=== PATIENT | male | born 1995 | race Caucasian/White ===

== ENCOUNTER 2024-10-12 09:00 | Outpatient (AMB) | payer BC, SELFPAY ==
--- NOTE | 2024-10-12 09:01 | MHC.PC.OV ---
Vital Signs 10/12/24 09:06 Height 5 ft 6 in Weight 166 lb BMI 26.8 BP 124/72 Blood Pressure Location Lt brachial Position Sitting Respiration 12 Pulse 84 Pulse Source Pulse Oximeter Temp 97.0 F Temp Source Oral Pulse Oximetry (%) 99 Oxygen Delivery Method Room Air Intake Visit Reasons: CPE Intake Note: New patient to establish care and cpe. Non Clinical Advisor Required: No Allergies No Known Allergies Allergy (Verified 10/12/24 09:26) Medication List - Last Reconciled 10/12/24 by RASHAUN Edmond No Known Home Meds Tobacco use date assessed: 10/12/24 Dental Screening Dental Screen Date: 10/12/24 Did you have a dental visit in the last 12 months?: No Did you have a dental problem in the last 6 months where you did not have access to dental care?: No Was dental information given to patient?: Patient has dentist HPI HPI Comments History of Present Illness Details 29 y/o M with asthma, ADHD, current vape nicotine and marijuana use, fhx Crohns social: getting next year;has a Cat, works as General [employer] Surgery: none Fhx: Mom crohns, Dad asthma; 2 brothers youngest bro w/ aspergers, brain surgery; 1 older sister alive. No children. Denies cancer in grandparents; PGM with COPD/. Health Maintenance Tdap admin today Specialists None History of Present Illness - The patient is a 29-year-old male presenting to establish care and for CPE - Previous PCP - peds. No records - Recent Streptococcal Pharyngitis; completed antibiotics, slight persistent scratchy throat, likely allergy-related. - Resolved childhood Asthma, no active treatment or symptoms. - ADHD, stopped Adderall at 17 due to side effects. - Family history of Crohn's, Asperger's, cancer-not specified, and COPD. - Recreational cannabis use reduced, stopped nicotine vaping recently. - Anxiety and depression screenings negative. - No Corrective lenses Past Surgical History - None Family History - Mother: Crohn?s disease - Father: History of adult-onset asthma - Youngest Brother: Asperger's syndrome and unspecified condition treated with chemotherapy. - Paternal Grandmother: due to Chronic Obstructive Pulmonary Disease (COPD). - No known family history of cancer besides COPD-related complications. Social History - Employment: manager mental health at an [employer] - Housing: Resides in [place] - Relationship Status: Engaged, with plans to next year - Substance Use: Ceased nicotine vaping a week ago, cannabis usage limited to weekends - Planning to cease cannabis entirely before starting a family Health Maintenance - Tetanus vaccine update recommended and consent given for administration today. - Screening labs discussed for future wellness visits; patient prefers completion before next visit. Review of Systems - General: Denies fever, denies significant weight changes. - Respiratory: Denies current asthma symptoms. - ENT: Reports mild scratchy throat. - Psychological: Denies current anxiety or depression. Physical Exam General: Well developed, well nourished, in no acute distress. Appears stated age. Head: Normocephalic, atraumatic. Eyes: Pupils are equal, round and reactive to light and accommodation. Conjunctivae are clear. Vision grossly normal. Patient wears corrective lenses. Ears: TMs clear AU, EACS WNL Nose: Patent, without discharge. No lesions noted. Neck: Supple, no adenopathy or thyromegaly. No pain on swallowing. Breast: Edu on SBE Lungs: Clear to auscultation bilaterally. No rales, rhonchi or wheeze noted. Good air flow in all youngblood. Heart: Regular rate and rhythm. No murmurs, click, rubs or gallops are noted. Abdomen: Bowel sounds present in all quadrants. The abdomen is soft, nontender, with no masses or organomegaly noted. No hernias are noted. : Deferred. Reviewed AMBREEN & recommendations Pulses: Peripheral pulses are equal and palpable bilaterally. Extremities: No clubbing, cyanosis nor edema is noted. History of ingrown toenails, currently resolved. Neurologic: Gait and station normal. Cranial Nerves 2-12 intact. Motor strength grossly symmetrical and intact. No sensory loss. Balance normal. Skin: No rashes, ulcers, or lesions noted. Turgor is good. Skin color is good. Hair and nails are without abnormalities. Psych: Normal eye contact, affect and mood appropriate, and normal interactions. Patient is alert and appropriate to context. Results Pending Discussion Notes During our discussion, I addressed the need for establishing primary care and updating vaccinations due to the patient's upcoming life changes, such as marriage. We went over his recent history of Streptococcal Pharyngitis and confirmed that he completed his antibiotic course with remaining mild throat discomfort likely connected to seasonal allergies. We discussed his ADHD history and the past use of Adderall, noting a preference not to revisit medication at this time. I encouraged further cannabis use reduction, especially considering future family planning. The importance of routine health maintenance, including updating immunizations like the tetanus shot today, and planning screenings for future visits was emphasized. The patient agreed to these steps and received guidance on accessing the patient portal and lab services. We also reinforced the importance of regular primary care visits moving forward. Patient was given time to ask questions. All questions were answered to their satisfaction. Assessment and Plan Tdap Labs at a later date; schedule telehealth to review Nicotine and cannabis cessation/reduction edu RTO 1 year CPE sooner PRN Consent Patient was informed and verbally consented to the use of an ambient scribe for clinic note documentation during this visit. An additional 15 minutes was spent addressing the problem(s) noted at todays visit. This includes time spent before the visit reviewing the chart, time spent during the visit, and time spent after the visit on documentation reviewing laboratory results, diagnostic imaging, medications, performing a medically necessary evaluation, counseling on diagnoses, care coordination, ordering appropriate tests, ordering appropriate medications, review of tests performed by other providers, reporting test results with the patient, communication with other healthcare providers. [facility] Medical History (Updated 10/12/24 @ 09:52 by Jagruti Zavala, [facility]) Asthma Surgical History (Updated 10/12/24 @ 09:10 by Clemencia Ann MA) No pertinent past surgical history Family History (Updated 10/12/24 @ 09:10 by Clemencia Ann MA) Father Asthma Social History (Updated 10/12/24 @ 09:09 by Clemencia Ann MA) Household Members: Significant Other Both parents involved: No Caregiver staying overnight: No Housing: House Are you a primary healthcare customer service to a significant other at home: No Do you presently have visiting nurse or other home services: No 75 years or older and lives alone: No Alcohol intake: current Alcohol intake frequency: a few times a week Patient Tobacco Use Status: Never used Tobacco e-Cigarette/Vaping Use: Never Used Second Hand Smoke Exposure: No Substance Use Type: Marijuana service: No Current occupational status: employed Current occupation: [employer] Cognitive needs: No Hearing needs: No Vision needs: No Questionnaire PHQ-9 Over the last 2 weeks, how often have you been bothered by any of the following problems? 1. Little interest or pleasure in doing things: not at all 2. Feeling down, depressed, or hopeless: not at all 3. Trouble falling or staying asleep, or sleeping too much: several days 4. Feeling tired or having little energy: several days 5. Poor appetite or overeating: several days 6. Feeling bad about yourself - or that you are a failure or have let yourself or your family down: not at all 7. Trouble concentrating on things, such as reading the newspaper or watching television: several days 8. Moving or speaking so slowly that other people could have noticed. Or the opposite - being so fidgety or restless that you have been moving around a lot more than usual: not at all 9. Thoughts that you would be better off or of hurting yourself in some way: not at all Total score: 4 Depression Screening Interpretation: Negative Depression Screening Done: Yes 42281 - PHQ-9 Billing: Yes Source: Developed by Drs. Rob Doe, Kelley Jiménez, Filiberto Zimmer and colleagues, with an educational gladys from [employer]. Thrive Questionnaire Date Thrive assessed: 10/12/24 I am a: Patient What is your living situation today?: I have a steady place to live Within the past 12 months, did the food you bought not last and you didn't have the money to get more?: Never true Within the past 12 months, did you worry whether your food would run out before you got money to buy more?: Never true Do you have trouble paying for medicines?: No Do you have trouble getting transportation to medical appointments?: No Do you have trouble paying your heating and electricity bill?: No Do you have trouble taking care of your child, family member or friend?: No Do you have trouble with day-to-day activities such as bathing, preparing meals, shopping, managing finances, etc.?: No Are you currently unemployed and looking for a job?: No Are you interested in more education?: No Please select the resources that you would like help with: None Currently or been in a relationship where the following occur: No concerns reported THRIVE Score: 0 AUDIT C Alcohol Use Questionnaire (AUDIT-C) 1. How often do you have a drink containing alcohol?: 2-4 times a month 2. How many drinks containing alcohol do you have on a typical day when you are drinking?: 3 or 4 3. How often do you have six or more drinks on one occasion?: Less than monthly Total Score: 4 Score Reviewed/Action Taken: Yes JANAE-7 AMB Questionnaire JANAE-7 Date JANAE - 7 assessed: 10/12/24 Feeling nervous, anxious, or on edge: 0 = Not at all Not being able to stop or control worryin = Not at all Worrying too much about different things: 1 = Several days Trouble relaxin = Not at all Being so restless that it is hard to sit still: 1 = Several days Becoming easily annoyed or irritable: 0 = Not at all Feeling afraid as if something awful might happen: 0 = Not at all Total JANAE-7 score (0-4 normal; 5-9 mild; 10-14 moderate; 15-21 severe): 2 Source: Developed by Drs. Rob Doe, Kelley Jiménez, Filiberto Zimmer and colleagues, with an educational gladys from [employer]. JANAE-7 Assessment Billing JANAE-7 Assessment Tool: JANAE-7 Assessment 18378 ACT Questionnaire In the past 4 weeks, how much of the time did your asthma keep you from getting as much done at work, school or at home?: None of the time During the past 4 weeks, how often have you had shortness of breath?: Not at all During the past 4 weeks, how often did your asthma symptoms wake you up at night or earlier than usual in the morning?: Not at all During the past 4 weeks, how often have you had to use your rescue inhaler or nebulizer medication?: Not at all How would you rate your asthma control during the past 4 weeks?: Completely controlled ACT Interpretation: Negative Score: 25 Physical exam (Primary Care) Vital Signs: Last Vital Signs Temp 97.0 F 10/12/24 09:06 Pulse 84 10/12/24 09:06 Resp 12 10/12/24 09:06 BP 124/72 10/12/24 09:06 Pulse Ox 99 10/12/24 09:06 Oxygen Delivery Method Room Air 10/12/24 09:06 BMI result Body Mass Index 26.8 Tobacco/Smoking Status: Tobacco use Status Tobacco use date assessed 10/12/24 10/12/24 09:10 Patient Tobacco Use Status Never used Tobacco 10/12/24 09:10 e-Cigarette/Vaping Use Never Used 10/12/24 09:10 PHQ-9: PHQ-9 Score PHQ-9: Total score 4 10/12/24 09:26 Depression Screening Interpretation: Negative Thrive Assessment: Date of Thrive Assessment Date Thrive assessed 10/12/24 10/12/24 09:10 Currently or been in a relationship where the following occur: No concerns reported Immunizations Boostrix Tdap 2.5 Lf unit-8 mcg-5 Lf/0.5 mL intramuscular syringe Performing Provider: FIFI Edmond Performing Location: [facility] [place] Family Medicine Administered by: Clemencia Ann MA on 10/12/24 09:48 Dose Route Admin Location Dispensed Lot Number Expiration Date [facility] Screen Measurer [employer] Trimmer 0.5 mL IM Right Deltoid 0.5 mL [id number] 12/07/26 46997-181-49 Marginize Total Dispensed Waste 0.5 mL 0 % VIS Given Date VIS Provided VIS Publication Date 10/12/24 Single Vaccine 20 Eligibility Eligibility Date Funding Source Not [facility] Eligible 10/12/24 Private Coding Level of Care Code New Pt Level 2 (95682) New Pt Prev Care 18-39yr(24811 Diagnoses Encounter to establish care with new provider Z76.89 Need for Tdap vaccination Z23 Hx of attention deficit hyperactivity disorder Z86.59 Laboratory exam ordered as part of routine general medical examination Z00.00 Current nicotine vapor product user on some days Z72.0 Marijuana use F12.90 Family history of Crohn's disease Z83.79 History of asthma Z87.09 Encounter for general adult medical examination without abnormal findings Z00.00 Additional Codes JANAE-7 Assessment Billing - JANAE-7 Assessment Tool: JANAE-7 Assessment 42812 ([id number]) PHQ-9 - 66075 - PHQ-9 Billing: Yes ([id number]) Asthma Control Questionnaire - ACT Interpretation: Negative ([id number]) Assessment & Plan Assessment & Plan (1) Encounter to establish care with new provider: Code(s): Z76.89 - Persons encountering health services in other specified circumstances (2) Need for Tdap vaccination: Code(s): Z23 - Encounter for immunization Category: Medical (3) Hx of attention deficit hyperactivity disorder: Comment: was on adderral age [age] stopped while in highschool, managing @ this time. Code(s): Z86.59 - Personal history of other mental and behavioral disorders Category: Medical (4) Laboratory exam ordered as part of routine general medical examination: Code(s): Z00.00 - Encounter for general adult medical examination without abnormal findings Category: Medical (5) Current nicotine vapor product user on some days: Comment: Smoking Cessation How to Quit There are a lot of ways to quit smoking and many resources to help you. Family members, friends, and co-workers may be supportive or encouraging, but to be successful the desire and commitment to quit must be your own. Most people who have been able to successfully quit smoking made at least one unsuccessful attempt in the past. Try not to view past attempts to quit as failures, but rather as learning experiences. Stopping smoking or using smokeless tobacco is difficult, but anyone can do it. Know the symptoms to expect when you stop. Common symptoms include: ? An intense craving for nicotine ? Anxiety, tension, restlessness, frustration, or impatience ? Difficulty concentrating ? Drowsiness or trouble sleeping, as well as bad dreams and nightmares ? Drowsiness and trouble sleeping ? Headaches ? Increased appetite and weight gain ? Irritability or depression How severe your symptoms are depends on how long you smoked and how many cigarettes you smoked each day. Feel ready to quit? ? First and foremost, set a quit date and quit completely on that day. Before your quit date, you may begin reducing your cigarette use. But remember, there is no safe level of cigarette smoking. ? List the reasons why you want to quit. Include both short- and long-term benefits. ? Identify the times you are most likely to smoke. For example, do you tend to smoke when feeling stressed or down? When out at night with friends? While drinking coffee or alcohol? When bored? While driving? Right after a meal or sex? During a work break? While watching TV or playing cards? When you are with other smokers? ? Let all of your friends, family, and co-workers know of your plan to stop smoking and your quit date. Just being aware that they know what you're going through can be helpful, especially when you are grumpy. ? Get rid of all your cigarettes just before the quit date, and clean out anything that smells like smoke, such as clothes and furniture. Make a plan about what you will do instead of smoking at those times when you are most likely to smoke. ? Be as specific as possible. For example, drink tea instead of coffee -- tea may not trigger the desire for a cigarette. Or, take a walk when you feel stressed. ? Remove ashtrays and cigarettes from the car. Place pretzels or hard candies there instead. Pretend-smoke with a straw. ? Find activities that focus your hands and mind but are not taxing or fattening. Computer games, solitaire, knitting, sewing, and crossword puzzles may help. ? If you normally smoke after eating, find other ways to end a meal. Play a tape or CD, eat a piece of fruit, get up and make a phone call, or take a walk (a good distraction that also fonseca calories). Make other changes in your lifestyle. ? Change your daily schedule and habits. Eat at different times or eat several small meals instead of three large ones. Sit in a different chair or even a different room. ? Satisfy your oral habits by eating celery or other low-calorie snack, chewing sugarless gum, or sucking on a cinnamon stick. ? Go to public places and restaurants where smoking is prohibited or restricted. ? Eat regular meals and don't eat too much candy or sweet things. ? Get more exercise. Take walks or ride a bike. Exercise helps relieve the urge to smoke. Set short-term quitting goals and reward yourself when you meet them. ? Every day, put the money you normally spend on cigarettes in a jar. Then buy something pleasurable after a period of time. ? Try not to think about all the days ahead you will need to avoid smoking. Take it one day at a time. ? Even one puff or one cigarette will make your desire for more cigarettes even stronger. However, it is normal to make mistakes. So even if you have one cigarette, you don't need to take the next one. Other tips to help you quit smoking and stick to it: ? Enroll in a smoking cessation program (hospitals, health departments, community centers, and work sites often offer programs). Learn about self-hypnosis or other techniques. ? Ask your health care provider about prescription medications that are safe and appropriate for you. ? Find out about nicotine patches, gum, and sprays. The [employer]'s web site -- www.cancer.org -- is an excellent resource for smokers who are trying to quit, and the [employer] Sm[employer] can help some smokers kick the habit. Above all, don't get discouraged if you aren't able to quit smoking the first time. Nicotine addiction is a hard habit to break. Try something different next time. Develop new strategies, and try again. Many people take several attempts to finally kick the habit. Code(s): Z72.0 - Tobacco use Category: Social Hx (6) Marijuana use: Comment: Marijuana: Natural = Safe, Right? Marijuana is readily available to use in many states in the [place]. Understanding the possible risks of use is important to ensure the safety. No matter how you use marijuana (smoke it, eat it, or apply to your skin), it may cause problems with both short term and jail use How marijuana affects your BRAIN: Potential effects from Short Term Use Poor focus, memory and reaction time Difficulty with problem solving Hallucinations, paranoia, anxiety Potential effects from Jail Use Memory problems and trouble learning new things Depression, hallucinations, paranoia, anxiety, worsening PTSD symptoms addiction Brain. It is not safe to drive while on marijuana. It makes it hard to doctor of naturopathic medicine distance, concentrate, react quickly to signals and sounds, be alert and coordinated. If alcohol is combined, this risk is even higher! In regular users, some of the effects from service superintendent use may last for days or even weeks after stopping marijuana. How inhaling marijuana affects your LUNGS: Inhaling harmful chemicals Gases Small particles Carcinogens (toxins linked to cancer) Breathing problems similar to tobacco smokers Daily cough with mucus Difficulty breathing Lung infections (bronchitis, pneumonia) Lungs How marijuana affects your HEART: Increases risk of heart attack Within the first hour of smoking Increases heart rate 20?100% increase after smoking Increase lasts up to three hours Changes in heart rhythm Feels like your heart skips a beat, or is fluttering, or beating too fast or too slow Heart Is it SAFE to use marijuana with other medications? A combination that can be concerning is the use of opioids and/or benzodiazepines with marijuana. Opioids + Benzodiazepines + Marijuana: Drowsiness: All three can cause drowsiness. Reaction time: All three can reduce reaction time. Do not drive or operate machinery. Overdose: Opioids and Benzodiazepines can cause reduced breathing and in some cases, breathing can stop and a person can . Marijuana containing higher levels of THC may cause difficulty with thinking and memory and this could result in medication errors where extra doses of opioids, benzodiazepines, or other medications may be taken. What is the harm? Example of Opioids Morphine (MS Contin?, Yeimi?) Oxycodone (Percocet?, OxyContin?) Hydrocodone (Vicodin?, [place]?) Fentanyl (Duragesic?) Methadone Heroin Example of Benzodiazepines Lorazepam (Ativan?) Diazepam (Valium?) Alprazolam (Xanax?) Clonazepam (Klonopin?) If you have specific questions about the safety of using marijuana with other medications, please contact your provider or pharmacist. Some marijuana users can become addicted! You can have problems with marijuana withdrawal. You may have withdrawal symptoms the day after you stop using. These can get worse 2 to 3 days after using and can take 1 to 2 weeks or longer to go away. Recovery and Treatment Contact your provider or health care team if you are having concerns about your marijuana use or to learn more about available treatment services. The marijuana plant is not an FDA-approved medicine: The U.S. Food and Drug Administration (FDA) has not approved the marijuana plant as a medication due to lack of studies on the risks and benefits. Marijuana contains over 100 chemical substances known as cannabinoids. Some of these, like tetrahydrocannabinol (THC), have mind altering effects and can be intoxicating. Cannabidiol (CBD), another cannabinoid, does not cause the same ?high? users of THC experience. THC has been studied for the treatment of several conditions, including nausea and increasing appetite. CBD is similarly being studied for a number of conditions, including childhood epilepsy and inflammation. What is different between the marijuana product I get from the marijuana shop and a prescription from the pharmacy? The right dose of any medicine is important. A specific dose of THC is approved to treat nausea, but high doses of THC may cause vomiting. The ingredients in a medicine must be measured and stay the same from one dose to the next. The marijuana plant contains unknown ingredients that change from plant to plant. This makes it hard to control the ?dose? of marijuana needed to treat a condition and use it in the same way we use other medicines. Future studies are ongoing to establish the role of the marijuana plant and the cannabinoids found in the plant for treatment of medical conditions. If you have questions about using a marijuana product for a medical condition, please discuss this with your medical provider to determine the most appropriate treatment for you. [facility] Providers are not able to prescribe marijuana products. Information in this document was compiled by the [facility] of Excellence in Substance Abuse treatment and Education ([facility] [place] It contains information from factsheets by the National [place] on Drug Abuse (www.drugabuse.gov) and presentation by Farhat Noriega, Farhat Greene, & Estrella Oneil (2010) entitled ?What providers need to know about cannabis use in Veterans with mental health conditions: Research, policy, practice,? and an additional reference: Sherry Aguilar M.D., Eldon Schwab, Ph.D., Anthony Trinidad M.D., and Monica Lou, Ph.D: Adverse Effects of Marijuana. N Engl J Med 2014; 370:7359-1331, July 22, 2012 DOI: [id number]. [place] [facility] Academic Detailing Service Code(s): F12.90 - Cannabis use, unspecified, uncomplicated Category: Social Hx (7) Family history of Crohn's disease: Comment: mom Code(s): Z83.79 - Family history of other diseases of the digestive system Category: Medical (8) History of asthma: Code(s): Z87.09 - Personal history of other diseases of the respiratory system Category: Medical (9) Encounter for general adult medical examination without abnormal findings: Onset Date: ~10/12/24 Code(s): Z00.00 - Encounter for general adult medical examination without abnormal findings Category: Medical Plan . Orders: Orders Microalbumin, Random (w Creat) Today Z00.00 - Encounter for general adult medical examination without abnormal findings TSH reflex Free T4 Today Z00.00 - Encounter for general adult medical examination without abnormal findings Vitamin B12 and Folate Today Z00.00 - Encounter for general adult medical examination without abnormal findings Vitamin D 25-OH Total Today Z00.00 - Encounter for general adult medical examination without abnormal findings TDaP Immunization Today Z23 - Encounter for immunization Complete Blood Count no Diff Today Z00.00 - Encounter for general adult medical examination without abnormal findings Comprehensive Met. Panel Today Z00.00 - Encounter for general adult medical examination without abnormal findings Hemoglobin A1c Today Z00.00 - Encounter for general adult medical examination without abnormal findings Lipid Panel Today Z00.00 - Encounter for general adult medical examination without abnormal findings Patient Instructions: Patient Instructions - tetanus shot today - Continue reducing cannabis use ahead of family planning. - Complete lab work before the next visit. - sign up for portal Walk-In Care (Urgent Care): We Make it Easy Walk-in for urgent medical issues such as: ? Seasonal Allergies ? Insect Bites ? Cough ? Diarrhea ? Acute Asthma Attacks ? Back, Knee or Joint Pain ? Ear Infection ? Fever without a Rash ? Headaches ? Nausea ? [place] [facility], Rash or Skin Irritation ? Sore Throat ? Sports Physicals ? Vomiting Most insurances are accepted. Patients do not need to be part of the [facility] to seek care at the walk-in clinic. Locations [facility] [place] [address] ? [phone] [facility] Walk-In Care in [place] provides services to ages 18 and over. Open Friday-Friday: 7 a.m. to 5 p.m. and Friday: 9 a.m. to 3 p.m.* *Hours may vary due to staffing availability. To confirm Walk-In Care hours in [place], please call [phone]. [address] [place] [address] ? [phone] [facility] Walk-In Care in [place] provides services to ages 12 and over. Open Friday-Friday: 8 a.m. to 5 p.m. Hours may vary due to staffing availability. To confirm Walk-In Care hours in [place], please call [phone]. LABORATORY SERVICES: [facility] Lab ? Primary Location [address] [place] [address] Friday through Friday 6:00 AM ? 5:00 PM Friday 7:00 AM ? 11:00 AM* [phone] The [facility] Lab is centrally located near the front entrance of the Medical Center for easy outpatient access. Convenient parking is provided for outpatients. *Hours may vary due to staffing availability. To confirm Laboratory hours for any location, please call [phone]. Offsite Location For your convenience, we offer offsite laboratory draw stations at the following locations: [address] [facility], [place] ? [facility] [address], [address], [place] Friday through Friday 7:30 AM ? 1:00 PM* [phone] *Hours may vary due to staffing availability. To confirm Laboratory hours for any location, please call [phone]. [place] ? [facility] [address] [facility], [place] Friday through Friday 6:00 AM ? 3:30 PM* Friday 6:30 AM ? 3 PM* [phone] *Hours may vary due to staffing availability. To confirm Laboratory hours for any location, please call [phone] [place] [address] Friday through Friday 7:30 AM ? 4:00 PM* [phone] *Hours may vary due to staffing availability. To confirm Laboratory hours for any location, please call [phone] [place] [address] Friday through 9:00 AM ? 4:00 PM* *Hours may vary due to staffing availability. To confirm Laboratory hours for any location, please call [phone]. Appointments are not necessary. Walk-ins are welcome. Like all the departments throughout the [facility], our Lab undergoes frequent reviews to ensure the quality and accuracy of test results, and our staff takes special pride in its status as a nationally accredited facility. Patient Portal: [facility] ONE PATIENT. ONE RECORD. BETTER CARE. [facility] has a fully integrated, cutting-edge mobile electronic health information system that has revolutionized the way we care for our patients and manage our organization. This system improves communication and coordination enabling us to provide safe, higher-quality care, and an overall positive experience for staff and patients. Our first priority, as always, is to deliver the highest quality care possible. The system is running in the background supporting that priority. This portal is for all [facility] services and practices. If you are experiencing any technical difficulties with enrolling or logging into the Patient Portal please complete the [facility] Patient Portal Technical Support Form. [facility] now offers a new secure on-line interactive tool for patients to review their health information ? ?Patient Portal. This interactive web portal will enable patients and their families to take an active role in their care by providing easy, secure access to their health information via the internet. The Patient Portal provides patients with instant access to their health information, including laboratory results, medications, allergies, demographic information, visit history, and more. In addition to managing their own care, parents and health care proxies with authorized consent will appreciate the ability to access the records of those individuals for whom they provide care. Please note: if you wish to gain access (Proxy) to another patient?s portal, you will be required to come to the Medical Records Department in person at [facility]. Both the patient giving proxy access and the proxy will need to provide photo identification and complete the appropriate authorization. The Patient Portal also allows track their appointments online. The [facility] Patient Portal also saves patients time by allowing them to submit updates to their demographic and contact information prior to their visits. Portal email notifications will also alert patients to any new activity on their portal, such as test results and new appointments. In order to initially enroll in the [facility] Patient Portal, you will need to enter some required information including the following: your [facility] Medical Record number your personal home email address name date of Please note: In order to enroll in the [facility] Patient Portal, we need to have your email address on file in your electronic medical record. ?The email address needs to be specific for one person (yourself) in order for your Portal enrollment to be successful. ?You can update your email address in person with our Registration staff when you are registering for a hospital visit. ?Otherwise, you will need to come to the Health Information Management (Medical Records) Department at [facility]. ?We are open from Friday ? Friday from 7:30 a.m. ? 4:30 p.m. ?You will be required to present a photo id. Once you have successfully enrolled in the Patient Portal, you will receive a one-time user id and password for the Portal, sent to your email address. ?This will allow you to log into the Patient Portal within 99 hrs and reset your own logon id and password, and define personal security questions. ?Once your permanent login and password have been set, you can log into the [facility] Patient Portal at any time via the blue button above or from the Portal Logon button on any page of the [facility] website. [facility] encourage all of our patients to enroll in Patient Portal as it presents a valuable opportunity for patients and their families to actively participate in their care and stay healthy Welcome to [facility]. ?We look forward to working with you. Health screenings for men You should visit your health care provider regularly, even if you feel healthy. The purpose of these visits is to: Screen for medical issues Assess your risk for future medical problems Encourage a healthy lifestyle Update vaccinations and other preventive care services Help you get to know your provider in case of an illness Information Even if you feel fine, you should still see your provider for regular checkups. These visits can help you avoid problems in the future. For example, the only way to find out if you have high blood pressure is to have it checked regularly. High blood sugar and high cholesterol level also may not have any symptoms in the early stages. Simple blood tests can check for these conditions. There are specific times when you should see your provider or receive specific health screenings. The [place] Preventive Services Task Force publishes a list of recommended screenings. Below are screening guidelines for men ages 40 to 64. BLOOD PRESSURE SCREENING Have your blood pressure checked at least once every year. Watch for blood pressure screenings in your area. Ask your provider if you can stop in to have your blood pressure checked. Ask your provider if you need your blood pressure checked more often if: You have diabetes, heart disease, kidney problems, or are overweight or have certain other health conditions You have a first-degree relative with high blood pressure You are Black Your blood pressure top number is from 120 to 129 mm Hg, or the bottom number is from 70 to 79 mm Hg If the top number is 130 mm Hg or greater or the bottom number is 80 mm Hg or greater, this is considered stage 1 hypertension. Schedule an appointment with your provider to learn how you can lower your blood pressure. Effects of age on blood pressure CHOLESTEROL SCREENING Cholesterol screening should begin at age 35 for men with no known risk factors for coronary heart disease. Repeat cholesterol screening should take place: Every 5 years for men with normal cholesterol levels More often if changes occur in lifestyle (including weight gain and diet) More often if you have diabetes, heart disease, kidney problems, or certain other conditions COLORECTAL CANCER SCREENING If you are under age 45, talk to your provider about getting screened. You may need to be screened if you have a strong family history of colon cancer or polyps. Screening may also be considered if you have risk factors such as a history of inflammatory bowel disease or polyps. If you are age 45 to 75, you should be screened for colorectal cancer. There are several screening tests available: A stool-based fecal occult blood (gFOBT) or fecal immunochemical test (FIT) every year A stool sDNA test every 1 to 3 years Flexible sigmoidoscopy every 5 years or every 10 years with stool testing FIT done every year CT colonography (virtual colonoscopy) every 5 years Colonoscopy every 10 years You may need a colonoscopy more often if you have risk factors for colorectal cancer, such as: Ulcerative colitis A personal or family history of colorectal cancer A history of growths in your colon called adenomatous polyps DENTAL EXAM Go to the dentist once or twice every year for an exam and cleaning. Your dentist will evaluate if you have a need for more frequent visits. DIABETES SCREENING All adults who do not have risk factors for diabetes should be screened starting at age 35 and repeated every 3 years. If you have other risk factors for diabetes, such as a first degree relative with diabetes, overweight or obesity, high blood pressure, prediabetes, or a history of heart disease, you may be tested more often. If you are overweight and have other risk factors, such as high blood pressure and are planning to become , screening is recommended. EYE EXAM Have an eye exam every 2 to 4 years ages 40 to 54 and every 1 to 3 years ages 55 to 64. Your provider may recommend more frequent eye exams if you have vision problems or glaucoma risk. Have an eye exam that includes an examination of your retina (back of your eye) at least every year if you have diabetes. IMMUNIZATIONS Commonly needed vaccines include: Flu shot: get one every year COVID-19 vaccine: ask your provider what is best for you Tetanus-diphtheria and acellular pertussis (Tdap) vaccine: have as one of your tetanus-diphtheria vaccines if you did not receive it as an adolescent Tetanus-diphtheria: have a booster (or Tdap) every 10 years Varicella vaccine: receive 2 doses if you never had chickenpox or the varicella vaccine and were born in 1980 or after Hepatitis B vaccine: receive 2, 3, or 4 doses, depending on your exact circumstances, if you did not receive these as a child or adolescent, until age 59 Shingles (herpes zoster) vaccine: at or after age 50 Ask your provider if you should receive other immunizations, especially if you have certain medical conditions, such as diabetes or are at increased risk for some diseases such as pneumonia. INFECTIOUS DISEASE SCREENING Screening for hepatitis C: all adults ages 18 to 79 should get a one-time test for hepatitis C. Screening for human immunodeficiency virus (HIV): all people ages 15 to 65 should get a one-time test for HIV. Depending on your lifestyle and medical history, you may need to be screened for infections such as syphilis, chlamydia, and other infections. LUNG CANCER SCREENING You should have an annual screening for lung cancer with low-dose computed tomography (LDCT) if: You are age 50 to 80 years AND You have a 20 pack-year smoking history AND You currently smoke or have quit within the past 15 years OSTEOPOROSIS SCREENING If you are age 50 to 64 and have risk factors for osteoporosis, you should discuss screening with your provider. Risk factors can include long-term steroid use, low body weight, smoking, heavy alcohol use, having a fracture after age 50, or a family history of hip fracture or osteoporosis. Osteoporosis PHYSICAL EXAM All adults should visit their provider from time to time, even if they are healthy. The purpose of these visits is to: Screen for diseases Assess risk of future medical problems Encourage a healthy lifestyle Update vaccinations and other preventive care services Maintain a relationship with a provider in case of an illness Your height, weight, and body mass index (BMI) should be checked at every exam. During your exam, your provider may ask you about: Depression and anxiety Diet and exercise Alcohol and tobacco use Safety, such as use of seat belts and smoke detectors Your medicines and risk for interactions PROSTATE CANCER SCREENING If you're 55 through 69 years old, before having the test, talk to your provider about the pros and cons of having a PSA test. Ask about: Whether screening decreases your chance of dying from prostate cancer. Whether there is any harm from prostate cancer screening, such as side effects from testing or overtreatment of cancer when discovered. Whether you have a higher risk of prostate cancer than others. If you are age 55 or younger, screening is not generally recommended. You should talk with your provider about if you have a higher risk for prostate cancer. Risk factors include: Having a family history of prostate cancer (especially a brother or father) Being If you choose to be tested, the PSA blood test is repeated over time (yearly or less often), though the best frequency is not known. Prostate examinations are no longer routinely done on men with no symptoms. Prostate cancer SKIN EXAM Your provider may check your skin for signs of skin cancer, especially if you're at high risk. People at high risk include those who have had skin cancer before, have close relatives with skin cancer, or have a weakened immune system. TESTICULAR EXAM The [place] Preventive Services Task Force (USPSTF) now recommends against performing testicular self-exams. Doing testicular self-exams has been shown to have little to no benefit.
[2024-10-12 09:06] VITALS: BP 124/72; PULSE 84; RESP 12; TEMP 36.1; O2SAT 99; BMI 26.8
== END 2024-10-12 11:04 | disposition home or self-care (01) ==
LOC: HO.HMCFM 09:00
PROVIDERS: PCP Nurse Practitioner Family; Visit Provider Nurse Practitioner Family
DX: Z00.00 Encounter for general adult medical examination without abnormal findings (principal); F12.90 Cannabis use, unspecified, uncomplicated; Z76.89 Persons encountering health services in other specified circumstances; Z23 Encounter for immunization; Z86.59 Personal history of other mental and behavioral disorders; Z72.0 Tobacco use; Z83.79 Family history of other diseases of the digestive system; Z87.09 Personal history of other diseases of the respiratory system

== ENCOUNTER → 2024-10-12 09:00 | Outpatient (BNVA) | payer BC, SELFPAY | PROVIDERS: PCP Nurse Practitioner Family; Visit Provider Nurse Practitioner Family | DX: Z00.00 Encounter for general adult medical examination without abnormal findings (principal); J45.909 Unspecified asthma, uncomplicated; F90.9 Attention-deficit hyperactivity disorder, unspecified type; F17.290 Nicotine dependence, other tobacco product, uncomplicated; F12.90 Cannabis use, unspecified, uncomplicated; Z83.79 Family history of other diseases of the digestive system; Z87.09 Personal history of other diseases of the respiratory system; Z23 Encounter for immunization; Z76.89 Persons encountering health services in other specified circumstances; Z86.59 Personal history of other mental and behavioral disorders | CPT/HCPCS: 90471; 90715; 96127; 96160 ==